=== PATIENT | male | born 2005 | race Caucasian/White ===

== ENCOUNTER 2025-08-25 13:18 | Emergency (ER) | payer MEDICAID ==
[~2025-08-25] VITALS: Ht 180.3 cm; Wt 111.0 kg
[2025-08-25] MEDS: FLUORESCEIN SODIUM 1MG/STRIP BOTHEYE ONE (13:56)
[2025-08-25] MEDS: TETRACAINE 0.5% OPHTH DROPS 4ML BOTHEYE ONE (13:56)
[2025-08-25] MEDS ORDERED: TOBR5DRO70 RIGHTEYE (14:13)
[2025-08-25 14:30] VITALS: BP 128/74; PULSE 89; RESP 15; TEMP 36.8; O2SAT 100
== END 2025-08-25 14:31 | disposition home or self-care (01) ==
LOC: ER 13:37
DX: H10.9 Unspecified conjunctivitis (principal); E11.9 Type 2 diabetes mellitus without complications
CPT/HCPCS: 99283